=== PATIENT | female | born 1995 | race Two or more races ===

== ENCOUNTER 2017-12-01 20:33 | Emergency (ER) | payer OTHER ==
[2017-12-01] MEDS ORDERED: KETOROLAC TROMETHAMINE INJ/PF 30 MG/1 ML SDV IM ONE (23:10)
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
[2017-12-01 23:22] VITALS: BP 109/69
== END 2017-12-01 23:25 | disposition home or self-care (01) ==
LOC: ER 20:33
DX: M54.2 Cervicalgia (principal); M54.5 Low back pain; F17.200 Nicotine dependence, unspecified, uncomplicated; V87.7XXA Person injured in collision between other specified motor vehicles (traffic), initial encounter
CPT/HCPCS: 99284; 96372; J1885